=== PATIENT | male | born 1965 | race African-American/Black ===

== ENCOUNTER 2021-01-14 20:58 | Emergency (ER) | payer MEDICAID ==
[~2021-01-14] VITALS: Ht 170.2 cm; Wt 82.0 kg
[2021-01-14 23:36] VITALS: BP 144/76
== END 2021-01-14 23:46 | disposition home or self-care (01) ==
LOC: ER 20:58
DX: I10 Essential (primary) hypertension (principal)
CPT/HCPCS: 99281

== ENCOUNTER 2021-01-27 03:42 | Emergency (ER) | payer MEDICAID ==
[~2021-01-27] VITALS: Ht 170.2 cm; Wt 78.0 kg
[2021-01-27 06:28] LABS: BASOPHILS % 0.7 % (0.0-2.0); EOSINOPHILS % 1.1 % (0.0-5.0); HEMATOCRIT. 42.3 % (42.0-52.0); HEMOGLOBIN. 13.1 g/dL (14.0-18.0); LYMPHOCYTES % 19.4 % (20.0-50.0); MEAN CORPUSCULAR HEMOGLOBIN 21.5 pg (28.0-32.0); MEAN CORPUSCULAR VOLUME 69.1 fL (80.0-94.0); MEAN PLATELET VOLUME 9.3 fl (7.4-10.4); MONOCYTES % 4.8 % (2.0-8.0); PLATELET 230 x1000/uL (130-400); RED BLOOD CELL COUNT 6.12 mill/uL (4.7-6.1)
[2021-01-27 06:30] LABS: CHLORIDE 102 mEq/L (98-107)
[2021-01-27 06:46] LABS: CLARITY URINE CLEAR (CLEAR); COLOR URINE YELLOW (YELLOW); KETONES URINE NEGATIVE (NEGATIVE); LEUKOCYTE ESTERASE URINE NEGATIVE (NEGATIVE); NITRITE URINE NEGATIVE (NEGATIVE); OCCULT BLOOD URINE NEGATIVE (NEGATIVE); PROTEIN URINE NEGATIVE (NEGATIVE); SPECIFIC GRAVITY URINE 1.006 (1.005-1.030); UROBILINOGEN URINE 0.2 E.U./dL (0.2-1.0)
[2021-01-27 07:30] LABS: PLATELET ESTIMATE NORMAL
[2021-01-27] MEDS ORDERED: LISI10TA26 MT (07:31)
[2021-01-27 08:05] VITALS: BP 195/92
== END 2021-01-27 08:06 | disposition home or self-care (01) ==
LOC: ER 03:42
DX: F41.9 Anxiety disorder, unspecified (principal); I10 Essential (primary) hypertension; Z79.899 Other long term (current) drug therapy
CPT/HCPCS: 36415; 71045; 80053; 81003; 83880; 84484; 85025; 93005; 99285

== ENCOUNTER 2021-03-31 00:55 | Emergency (ER) | payer MEDICAID, OTHER ==
[~2021-03-31] VITALS: Ht 170.2 cm; Wt 77.0 kg
[~2021-03-31 00:55] MED LIST: LISI10TA26 MT
[2021-03-31] MEDS ORDERED: ACETAMINOPHEN 325MG TABLET PO ONE (01:45)
[2021-03-31 03:39] LABS: BASOPHILS % 1.1 % (0.0-2.0); EOSINOPHILS % 1.5 % (0.0-5.0); HEMATOCRIT. 34.8 % (36.0-48.0); MEAN CORPUSCULAR HEMOGLOBIN 21.2 pg (28.0-32.0); MEAN CORPUSCULAR VOLUME 67.4 fL (81.0-99.0); MEAN PLATELET VOLUME 8.9 fl (7.4-10.4); MONOCYTES % 7.1 % (2.0-8.0); NEUTROPHILS % 56.3 % (40.0-76.0); PLATELET 332 x1000/uL (130-400); RED BLOOD CELL COUNT 5.17 mill/uL (4.2-5.4); RED CELL DISTRIBUTION WIDTH 17.8 % (11.6-14.6)
[2021-03-31 04:44] LABS: CHLORIDE 106 mEq/L (98-107)
[2021-03-31 04:46] VITALS: BP 136/76
[2021-03-31 05:02] LABS: PLATELET ESTIMATE NORMAL
[2021-03-31 05:03] LABS: CLARITY URINE CLEAR (CLEAR); COLOR URINE YELLOW (YELLOW); KETONES URINE NEGATIVE (NEGATIVE); LEUKOCYTE ESTERASE URINE NEGATIVE (NEGATIVE); NITRITE URINE NEGATIVE (NEGATIVE); OCCULT BLOOD URINE NEGATIVE (NEGATIVE); PH URINE 6.5 (4.5-8.0); PROTEIN URINE NEGATIVE (NEGATIVE); SPECIFIC GRAVITY URINE 1.003 (1.005-1.030); UROBILINOGEN URINE 0.2 E.U./dL (0.2-1.0)
== END 2021-03-31 04:49 | disposition home or self-care (01) ==
LOC: ER 00:55
DX: R00.2 Palpitations (principal); M79.601 Pain in right arm; M54.50 Low back pain, unspecified; D64.9 Anemia, unspecified; I10 Essential (primary) hypertension; Z87.440 Personal history of urinary (tract) infections; Z90.710 Acquired absence of both cervix and uterus
CPT/HCPCS: 36415; 71045; 80053; 81003; 83880; 84484; 85025; 85379; 93005; 99285

== ENCOUNTER 2022-08-06 22:03 | Emergency (ER) | payer MEDICAID, OTHER ==
[~2022-08-06] VITALS: Ht 167.6 cm; Wt 82.5 kg
[2022-08-06 22:18] VITALS: BP 194/101; PULSE 89; RESP 18; TEMP 98.3; O2SAT 97
[2022-08-06] MEDS ORDERED: ACETAMINOPHEN 325MG TABLET PO STA (23:04)
[2022-08-06] MEDS ORDERED: LISINOPRIL 10MG TABLET PO ONE (23:15)
[2022-08-06 23:24] LABS: HEMATOCRIT 38.6 % (36.0-48.0); MEAN CORPUSCULAR HEMOGLOBIN 21.4 pg (28.0-32.0); MEAN CORPUSCULAR VOLUME 69.1 fL (81.0-99.0); PLATELET 223 x1000/uL (130-400); RED BLOOD CELL COUNT 5.58 mill/uL (4.2-5.4); RED CELL DISTRIBUTION WIDTH 14.9 % (11.6-14.6)
[2022-08-06 23:26] LABS: CLARITY URINE CLEAR (CLEAR); COLOR URINE YELLOW (YELLOW); KETONES URINE NEGATIVE (NEGATIVE); LEUKOCYTE ESTERASE URINE NEGATIVE (NEGATIVE); NITRITE URINE POSITIVE (NEGATIVE); OCCULT BLOOD URINE NEGATIVE (NEGATIVE); PROTEIN URINE NEGATIVE (NEGATIVE); SPECIFIC GRAVITY URINE 1.007 (1.005-1.030); UROBILINOGEN URINE 0.2 E.U./dL (0.2-1.0)
[2022-08-06 23:29] LABS: CHLORIDE 102 mEq/L (98-107)
[2022-08-07] MEDS ORDERED: LISI10TA26 PO (00:36)
[2022-08-07] MEDS ORDERED: ACET-2708 PO (00:36)
[2022-08-07] MEDS ORDERED: NITR100C MT (00:36)
[2022-08-07] MEDS ORDERED: METF-414 PO (00:36)
[2022-08-07] MEDS ORDERED: LISINOPRIL 10MG TABLET PO NR (01:00)
[2022-08-07] MEDS ORDERED: ACETAMINOPHEN 325MG TABLET PO NR (01:00)
== END 2022-08-07 01:06 | disposition home or self-care (01) ==
LOC: ER 22:03
DX: I10 Essential (primary) hypertension (principal); E11.65 Type 2 diabetes mellitus with hyperglycemia; R51.9 Headache, unspecified; N39.0 Urinary tract infection, site not specified; Z87.440 Personal history of urinary (tract) infections; Z90.710 Acquired absence of both cervix and uterus
CPT/HCPCS: 36415; 80048; 81003; 85027; 99284